=== PATIENT | female | born 1955 ===

== ENCOUNTER 2019-08-11 16:02 | Outpatient (CLI) | payer MEDICARE ==
--- NOTE | 2019-08-11 16:33 | RAD ---
LEFT FOOT THREE VIEWS: Indication: Left foot pain for two months. Comparison: None. 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 Lisfranc alignment is preserved. No acute fracture or subluxation i s evident. IMPRESSION: No acute osseous abnormality. POS: CET
== END 2019-08-11 16:03 | disposition home or self-care (01) ==
LOC: NAV RAD 16:02
PROVIDERS: ATTEND Nurse Practitioner Family
DX: M79.672 Pain in left foot (principal)